=== PATIENT | female | born 1980 | race Caucasian/White ===

== ENCOUNTER 2017-12-13 21:28 | Emergency (ER) | payer OTHER ==
[~2017-12-13] VITALS: Ht 167.6 cm; Wt 63.5 kg
[2017-12-13] MEDS ORDERED: LEXAPRO 10 MG T10 M2 (21:35)
[2017-12-13] MEDS ORDERED: TOPAMAX 25 MG T25 M1 PO (21:36)
[2017-12-13] MEDS ORDERED: KLONOPIN0.5 MG (21:36)
[2017-12-13] MEDS ORDERED: KEFLEX500 M1 PO (22:00)
[2017-12-13 22:22] VITALS: BP 150/80
== END 2017-12-13 22:26 | disposition home or self-care (01) ==
LOC: M.ERS 21:28
DX: Z48.00 Encounter for change or removal of nonsurgical wound dressing (principal); F41.9 Anxiety disorder, unspecified; F32.9 Major depressive disorder, single episode, unspecified; G43.909 Migraine, unspecified, not intractable, without status migrainosus; Z98.890 Other specified postprocedural states; Z90.89 Acquired absence of other organs; Z90.710 Acquired absence of both cervix and uterus; Z88.0 Allergy status to penicillin

== ENCOUNTER 2018-07-26 08:28 | Emergency (ER) | payer OTHER ==
[~2018-07-26] VITALS: Ht 167.6 cm; Wt 68.0 kg
[~2018-07-26 08:28] MED LIST: KEFLEX500 M1 PO; KLONOPIN0.5 MG; LEXAPRO 10 MG T10 M2; TOPAMAX 25 MG T25 M1 PO
[2018-07-26] MEDS ORDERED: BUSPIRONE HCL10 MG PO (08:46)
[2018-07-26 08:59] LABS: ABSOLUTE BASOPHILS 0.1 thou/uL (0.0-0.2); ABSOLUTE EOSINOPHILS 0.2 thou/uL (0.0-0.7); ABSOLUTE LYMPHOCYTES 2.3 thou/uL (0.8-5.3); ABSOLUTE MONOCYTES 0.9 thou/uL (0.0-1.2); ABSOLUTE NEUTROPHILS 5.3 thou/uL (1.6-8.1); BASOPHILS 1.2 %; EOSINOPHILS 1.8 %; HEMOGLOBIN 14.5 gm/dL (12.0-15.0); LYMPHOCYTES 26.4 %; MCH 31.4 pg (26.0-34.0); MCHC 34.4 g/dL (28.0-37.0); MCV 91.2 fL (80.0-100.0); MONOCYTES 10.7 %; MPV 8.2 fl. (7.2-11.1); NUCLEATED RBCS 0 /100WBC; PLATELET COUNT* 447 thou/uL (150-400); POLYS 59.9 %; RBC 4.61 mil/uL (4.20-5.00); RDW-CV 12.6 % (10.5-14.5); WBC 8.8 thou/uL (4.0-11.0)
[2018-07-26 09:04] LABS: CALCIUM 9.2 mg/dL (8.5-10.1); CREATININE 0.9 mg/dL (0.6-1.3); POTASSIUM 3.6 mmol/L (3.5-5.1)
[2018-07-26 09:08] LABS: ALBUMIN 4.1 g/dL (3.4-5.0); TOTAL BILIRUBIN 0.2 mg/dL (<0.1-1.0)
[2018-07-26 12:06] LABS: URINE BILIRUBIN NEGATIVE (Negative); URINE BLOOD NEGATIVE (Negative); URINE CLARITY CLEAR; URINE COLOR YELLOW; URINE GLUCOSE-RANDOM NEGATIVE (Negative); URINE KETONES NEGATIVE (Negative); URINE LEUKOCYTES-REFLEX NEGATIVE (Negative); URINE NITRITE-REFLEX NEGATIVE (Negative); URINE PROTEIN NEGATIVE (Negative); URINE UROBILINOGEN 0.2 E.U./dl (0.2-1.0)
[2018-07-26] MEDS ORDERED: ZOFRAN ODT4 MG PO (12:33)
[2018-07-26] MEDS ORDERED: NORCO 5-325 TA1 EACH PO (12:33)
[2018-07-26] MEDS ORDERED: BENTYL 20 MG TA20 M1 PO (12:33)
[2018-07-26 13:05] VITALS: BP 129/87
== END 2018-07-26 13:06 | disposition home or self-care (01) ==
LOC: M.ERS 08:28
PROVIDERS: Personal Emergency Response Attendant
DX: K52.9 Noninfective gastroenteritis and colitis, unspecified (principal); F41.9 Anxiety disorder, unspecified; F32.9 Major depressive disorder, single episode, unspecified; G43.909 Migraine, unspecified, not intractable, without status migrainosus; Z88.0 Allergy status to penicillin; Z98.890 Other specified postprocedural states; Z90.710 Acquired absence of both cervix and uterus